=== PATIENT | female | born 1970 | race Caucasian/White ===

== ENCOUNTER 2021-10-10 08:33 | Inpatient (IN) | payer OTHER ==
[~2021-10-10] VITALS: Ht 162.6 cm; Wt 115.7 kg
[~2021-10-10 08:33] MED LIST: AMIODARONE HCL200 MG PO; ATORVASTATIN CA10 MG PO; CITALOPRAM HBR20 MG PO; CLARITIN 10MG T10 MG PO; ELIQUIS 5 MG TAB5 MG PO; FLUCONAZOLE150 MG PO; INDERAL TAB 2020 MG PO; LOPRESSOR 25 MG25 MG PO; LOPRESSOR50 MG PO; MELOXICAM15 MG PO; PROTONIX40 MG PO; SPIRONOLACTONE50 MG PO
[2021-10-10 09:23] LABS: HEMOGLOBIN 11.5 gm/dl (12.3-15.3); RED BLOOD COUNT 5.21 M/UL (4.00-5.10); WHITE BLOOD COUNT 5.9 K/UL (4.5-11.0)
[2021-10-10 09:55] LABS: BUN/CREATININE RATIO 30 (0-10)
[2021-10-10] MEDS ORDERED: METOPROLOL TART50 MG PO (11:54)
[2021-10-10] MEDS ORDERED: TRAZODONE HCL50 MG PO (11:56)
[2021-10-10] MEDS ORDERED: FLECAINIDE ACET50 MG PO (11:56)
[2021-10-10] MEDS ORDERED: HYDRALAZINE HCL25 MG PO (11:56)
[2021-10-10] MEDS ORDERED: ELIQUIS5 MG PO (11:57)
[2021-10-10] MEDS ORDERED: BUSPIRONE HCL15 MG PO (11:57)
[2021-10-10] MEDS ORDERED: ASCORBIC ACID500 MG PO (11:57)
[2021-10-11 04:08] LABS: HEMOGLOBIN 11.3 gm/dl (12.3-15.3); RED BLOOD COUNT 5.27 M/UL (4.00-5.10); WHITE BLOOD COUNT 6.4 K/UL (4.5-11.0)
[2021-10-11 04:26] LABS: BUN/CREATININE RATIO 27 (0-10)
[2021-10-11] MEDS ORDERED: TAPAZOLE 10 MG10 MG PO (10:37)
[2021-10-11] MEDS ORDERED: INDERAL TAB 4040 MG PO (10:37)
== END 2021-10-11 11:00 | disposition home or self-care (01) | DRG 308 ==
LOC: ER1 08:33 → CDU 10:42
PROVIDERS: Emergency Medicine; Physician Assistant; ADMIT Internal Medicine
DX: I48.0 Paroxysmal atrial fibrillation (principal); E05.91 Thyrotoxicosis, unspecified with thyrotoxic crisis or storm; E87.1 Hypo-osmolality and hyponatremia; Z68.41 Body mass index [BMI] 40.0-44.9, adult; Z20.822 Contact with and (suspected) exposure to COVID-19; K21.9 Gastro-esophageal reflux disease without esophagitis; E66.01 Morbid (severe) obesity due to excess calories; I11.0 Hypertensive heart disease with heart failure; I50.9 Heart failure, unspecified; F41.9 Anxiety disorder, unspecified; E86.0 Dehydration; D64.81 Anemia due to antineoplastic chemotherapy; T38.6X5D Adverse effect of antigonadotrophins, antiestrogens, antiandrogens, not elsewhere classified, subsequent encounter; Z79.01 Long term (current) use of anticoagulants
CPT/HCPCS: 71045; 80053; 82550; 82553; 82728; 83520; 83540; 83550; 83735; 83880; 84439; 84443; 84484; 85025; 85610; 85730; 93005; 96374; 99285; G0378; U0002

== ENCOUNTER 2021-10-19 03:55 | Emergency (ER) | payer OTHER ==
[~2021-10-19 03:55] MED LIST changes: +ASCORBIC ACID500 MG PO; +BUSPIRONE HCL15 MG PO; +ELIQUIS5 MG PO; +FLECAINIDE ACET50 MG PO; +HYDRALAZINE HCL25 MG PO; +INDERAL TAB 4040 MG PO; +METOPROLOL TART50 MG PO; +TAPAZOLE 10 MG10 MG PO; +TRAZODONE HCL50 MG PO
[2021-10-19 05:35] LABS: HEMOGLOBIN 10.8 gm/dl (12.3-15.3); RED BLOOD COUNT 5.15 M/UL (4.00-5.10); WHITE BLOOD COUNT 6.2 K/UL (4.5-11.0)
[2021-10-19 05:57] LABS: BUN/CREATININE RATIO 23 (0-10)
== END 2021-10-19 15:30 | disposition home or self-care (01) ==
LOC: ER1 03:55
PROVIDERS: Physician Assistant
DX: E05.90 Thyrotoxicosis, unspecified without thyrotoxic crisis or storm (principal); I48.91 Unspecified atrial fibrillation; R60.0 Localized edema; I10 Essential (primary) hypertension; Z85.038 Personal history of other malignant neoplasm of large intestine; Z79.01 Long term (current) use of anticoagulants
CPT/HCPCS: 71045; 80053; 82550; 82553; 83735; 83880; 84439; 84443; 84484; 85025; 93005; 96374; 99285